=== PATIENT | female | born 1970 | race Caucasian/White ===

== ENCOUNTER 2019-04-24 05:02 | Inpatient (IN) ==
[2019-04-24] MEDS ORDERED: DEXTROSE 50% 25 GM/50 ML VIAL IV PRN (07:45)
[2019-04-24] MEDS ORDERED: diphenhydrAMINE CAP 25 MG CAPSULE PO PRN (07:45)
[2019-04-24] MEDS ORDERED: ONDANSETRON 4 MG/2 ML VIAL IV PRN (07:45)
[2019-04-24] MEDS ORDERED: GLUCAGON 1 MG VIAL IM PRN (07:45)
[2019-04-24 07:50] LABS: Pt O2 Delivery Device Venturi Mask
[2019-04-24 07:52] LABS: ABG Base Excess -8.5 MMOL/L (-2.5-2.5); ABG HCO3 20.2 MMOL/L (20-26); ABG Oxygen Saturation 84.8 % (95-100); ABG PCO2 57.3 MM HG (35-48); ABG TCO2 21.9 MMOL/L (23-27)
[2019-04-24 07:54] LABS: ABG PH 7.164 (7.35-7.45)
[2019-04-24] MEDS ORDERED: ALBUTEROL/IPRATROPIUM 3 ML NEB RESP TX PRN (07:54)
[2019-04-24] MEDS ORDERED: LEVOFLOXACIN 750 MG TABLET PO SCH (08:00)
[2019-04-24] MEDS: SODIUM CHLORIDE 0.9% 1,000 ML IV SCH ×2 (08:52→22:00)
[2019-04-24] MEDS: methylPREDNISolone SOD SUC 40 MG/1 ML VIAL IV SCH ×2 (08:53→15:36)
[2019-04-24] MEDS ORDERED: PANTOPRAZOLE 40 MG TABLET PO SCH (09:00)
[2019-04-24] MEDS ORDERED: FUROSEMIDE 100 MG/10 ML VIAL IV ONE (09:30)
[2019-04-24] MEDS ORDERED: PROPOFOL 1,000 MG/100 ML BOTTLE IV ONE ×2 (09:36→11:16)
[2019-04-24] MEDS: PROPOFOL 1,000 MG/100 ML BOTTLE IV SCH ×4 (09:41→18:34)
[2019-04-24] MEDS ORDERED: SUCCINYLCHOLINE 200 MG/10 ML VIAL ONE (09:48)
[2019-04-24] MEDS ORDERED: ETOMIDATE 40 MG/20 ML VIAL IV ONE (09:48)
[2019-04-24] MEDS ORDERED: fentaNYL INJ 1,250 MCG in SODIUM CHLORIDE 0.9% 225 ML IV PRN (10:33)
[2019-04-24 11:01] LABS: Pt O2 Delivery Device Ventilator
[2019-04-24 11:02] LABS: ABG Base Excess -10.9 MMOL/L (-2.5-2.5); ABG HCO3 15.7 MMOL/L (20-26); ABG Oxygen Saturation 91.3 % (95-100); ABG PO2 80.3 MM HG (80-95); ABG TCO2 19.8 MMOL/L (23-27)
[2019-04-24 11:03] LABS: ABG PH 7.062 (7.35-7.45)
[2019-04-24 11:04] LABS: ABG PCO2 71.5 MM HG (35-48)
[2019-04-24] MEDS: INSULIN LISPRO 100 UNIT/ML SUBCUT SCH ×2 (11:56→18:28)
[2019-04-24] MEDS: ALBUTEROL/IPRATROPIUM 3 ML NEB RESP TX SCH ×2 (12:57→19:45)
[2019-04-24 13:42] LABS: % Iron Saturation 14.3 % (18-50); Free T4 (Free Thyroxine) 1.43 NG/DL (0.76-1.46); Uric Acid 7.8 MG/DL (2.6-6.0)
[2019-04-24 14:02] LABS: Parathyroid Hormone Intact 743.9 PG/ML (18.4-80.1)
[2019-04-24] MEDS: MEROPENEM 500 MG in SODIUM CHLORIDE 0.9% 100 ML IV SCH ×2 (14:08→21:48)
[2019-04-24 15:16] LABS: Troponin I 0.251 NG/ML (0.00-0.045)
[2019-04-24 16:07] LABS: Apearance,Urine Clear (Clear); Bacteria,Urine Occasional /HPF (Few); Bilirubin,Urine Negative (Negative); Blood, Urine Trace mg/dL (Negative); Glucose,Urine (UA) Negative (Negative); Hyaline Casts,Urine 1 /LPF (0-3); Ketones,Urine Negative (Negative); Mucus,Urine Occasional /LPF (Occasional); Nitrite,Urine Negative (Negative); Protein,Urine 100 MG/DL; RBC,Urine 31 /HPF (0-4); Squamous Epithelial Cell,Urine Occasional /HPF (0-10); Urine Color Yellow (Yellow); Urine Specific Gravity 1.025 (1.001-1.035)
[2019-04-24 16:11] LABS: Urine Urobilinogen 0.2 EU/DL (0.2-1.0)
[2019-04-24] MEDS: fentaNYL INJ 2,500 MCG in SODIUM CHLORIDE 0.9% 500 ML IV PRN (17:19)
[2019-04-24 17:21] LABS: Troponin I 0.326 NG/ML (0.00-0.045)
[2019-04-24 20:43] LABS: Troponin I 0.346 NG/ML (0.00-0.045)
[2019-04-25] MEDS: methylPREDNISolone SOD SUC 40 MG/1 ML VIAL IV SCH ×3 (00:36→12:12)
[2019-04-25] MEDS: INSULIN LISPRO 100 UNIT/ML SUBCUT SCH ×4 (00:36→17:38)
[2019-04-25] MEDS: ALBUTEROL/IPRATROPIUM 3 ML NEB RESP TX SCH ×4 (00:47→19:39)
[2019-04-25] MEDS: PROPOFOL 1,000 MG/100 ML BOTTLE IV SCH ×5 (01:01→20:28)
[2019-04-25 04:23] LABS: Hematocrit 25.6 VOL% (35.7-47.0); Hemoglobin 7.6 GM/DL (12.0-16.0); Immature Granulocytes % 0.8 %; Immature Granulocytes Absolute 0.06 #; Lymphocytes # 0.9 10*3/uL (1.4-4.0); Lymphocytes % 12.7 % (21.3-54.2); Mean Corpuscular HGB Conc 29.7 GM/DL (32-36); Mean Corpuscular Volume 97.7 FL (87-102); Mean Platelet Volume 10.5 FL (9.6-12.0); Monocytes % 3.3 % (1.7-12.7); NRBC # 0.05 10*3/uL; Neutrophils % 83.2 % (38.7-73.9); Platelet Count 189 T/CUMM (130-400); Red Blood Count 2.62 MC/CUMM (3.8-5.5); Red Cell Distribution Width 14.8 % (9.3-17.3); White Blood Count 7.3 T/CUMM (4-12)
[2019-04-25 04:28] LABS: ABG Base Excess -8.4 MMOL/L (-2.5-2.5); ABG HCO3 17.6 MMOL/L (20-26); ABG Oxygen Saturation 94.6 % (95-100); ABG PCO2 37.7 MM HG (35-48); ABG PH 7.281 (7.35-7.45); ABG PO2 76.9 MM HG (80-95); ABG TCO2 16.3 MMOL/L (23-27); Allen Test Positive; Pt O2 Delivery Device Ventilator
[2019-04-25 04:31] LABS: Calcium 7.7 MG/DL (8.5-10.1); Osmolality,Calculated 304.5 MOS/KG (273-304)
[2019-04-25 04:36] LABS: Troponin I 0.388 NG/ML (0.00-0.045)
[2019-04-25 04:37] LABS: Risk Ratio 3.78; Thyroid Stimulating Hormone 0.907 uIU/ml (0.358-3.74); VLDL CHOLESTEROL 80.2 MG/DL
[2019-04-25] MEDS ORDERED: SODIUM POLYSTYRENE SULFATE 15 GM/60 ML BOTTLE PER TUBE ONE (04:43)
[2019-04-25] MEDS: fentaNYL INJ 2,500 MCG in SODIUM CHLORIDE 0.9% 500 ML IV PRN (05:35)
[2019-04-25] MEDS: MEROPENEM 500 MG in SODIUM CHLORIDE 0.9% 100 ML IV SCH ×2 (05:51→17:38)
[2019-04-25] MEDS ORDERED: ENOXAPARIN 30 MG/0.3 ML SYRINGE SUBCUT SCH (08:00)
[2019-04-25] MEDS ORDERED: GLUCAGON 1 MG VIAL IM PRN (08:29)
[2019-04-25] MEDS ORDERED: DEXTROSE 50% 25 GM/50 ML VIAL IV PRN (08:29)
[2019-04-25] MEDS: ENOXAPARIN 100 MG/ML SYRINGE SUBCUT SCH (08:51)
[2019-04-25] MEDS: LANSOPRAZOLE ODT 30 MG TABLET PER TUBE SCH (08:52)
[2019-04-25] MEDS: SODIUM BICARB INJ 100 MEQ in STERILE WATER INJ 1,000 ML IV SCH ×2 (09:21→20:28)
[2019-04-25 12:51] LABS: Calcium 7.8 MG/DL (8.5-10.1); Osmolality,Calculated 307.7 MOS/KG (273-304)
[2019-04-25] MEDS: fentaNYL INJ 2,500 MCG in SODIUM CHLORIDE 0.9% 450 ML IV PRN ×2 (13:17→21:49)
[2019-04-26] MEDS: INSULIN LISPRO 100 UNIT/ML SUBCUT SCH ×4 (00:43→18:27)
[2019-04-26] MEDS: methylPREDNISolone SOD SUC 40 MG/1 ML VIAL IV SCH ×2 (00:45→11:43)
[2019-04-26] MEDS: ALBUTEROL/IPRATROPIUM 3 ML NEB RESP TX SCH ×4 (01:12→19:05)
[2019-04-26] MEDS: PROPOFOL 1,000 MG/100 ML BOTTLE IV SCH ×5 (01:47→19:39)
[2019-04-26 04:37] LABS: Basophils % 0.1 % (0.0-0.8); Hemoglobin 8.4 GM/DL (12.0-16.0); Immature Granulocytes % 0.8 %; Immature Granulocytes Absolute 0.07 #; Lymphocytes # 1.2 10*3/uL (1.4-4.0); Lymphocytes % 14.9 % (21.3-54.2); Mean Platelet Volume 10.7 FL (9.6-12.0); Monocytes % 3.9 % (1.7-12.7); NRBC # 0.11 10*3/uL; Neutrophils % 80.3 % (38.7-73.9); Platelet Count 194 T/CUMM (130-400); Red Blood Count 2.98 MC/CUMM (3.8-5.5); Red Cell Distribution Width 14.6 % (9.3-17.3); White Blood Count 8.2 T/CUMM (4-12)
[2019-04-26 04:45] LABS: Calcium 7.6 MG/DL (8.5-10.1); Osmolality,Calculated 305.7 MOS/KG (273-304)
[2019-04-26 04:48] LABS: ABG Base Excess -5.6 MMOL/L (-2.5-2.5); ABG HCO3 20.1 MMOL/L (20-26); ABG Oxygen Saturation 94.1 % (95-100); ABG PCO2 40.2 MM HG (35-48); ABG PH 7.317 (7.35-7.45); ABG PO2 80.2 MM HG (80-95); ABG TCO2 21.3 MMOL/L (23-27); Allen Test Positive; Pt O2 Delivery Device Ventilator
[2019-04-26] MEDS: MEROPENEM 500 MG in SODIUM CHLORIDE 0.9% 100 ML IV SCH ×2 (05:35→17:24)
[2019-04-26] MEDS: fentaNYL INJ 2,500 MCG in SODIUM CHLORIDE 0.9% 450 ML IV PRN ×3 (06:03→23:15)
[2019-04-26] MEDS: SODIUM BICARB INJ 100 MEQ in STERILE WATER INJ 1,000 ML IV SCH ×2 (07:00→17:46)
[2019-04-26] MEDS ORDERED: INSULIN GLARGINE 100 UNIT/ML SUBCUT SCH ×2 (09:00)
[2019-04-26] MEDS: ENOXAPARIN 100 MG/ML SYRINGE SUBCUT SCH (09:33)
[2019-04-26] MEDS: LEVOFLOXACIN 500 MG TABLET PER TUBE SCH (09:34)
[2019-04-26] MEDS: LANSOPRAZOLE ODT 30 MG TABLET PER TUBE SCH (09:35)
[2019-04-26] MEDS: METOCLOPRAMIDE 10 MG/10 ML UDCUP PER TUBE SCH ×2 (11:37→19:39)
[2019-04-27] MEDS: ALBUTEROL/IPRATROPIUM 3 ML NEB RESP TX SCH ×4 (00:26→19:03)
[2019-04-27] MEDS: INSULIN LISPRO 100 UNIT/ML SUBCUT SCH ×4 (00:42→19:15)
[2019-04-27] MEDS: methylPREDNISolone SOD SUC 40 MG/1 ML VIAL IV SCH ×2 (00:42→13:53)
[2019-04-27] MEDS: PROPOFOL 1,000 MG/100 ML BOTTLE IV SCH ×5 (00:43→22:13)
[2019-04-27] MEDS: METOCLOPRAMIDE 10 MG/10 ML UDCUP PER TUBE SCH ×3 (03:07→19:17)
[2019-04-27 04:15] LABS: Allen Test Positive; Pt O2 Delivery Device Ventilator
[2019-04-27 04:16] LABS: ABG Base Excess -1.8 MMOL/L (-2.5-2.5); ABG HCO3 22.9 MMOL/L (20-26); ABG Oxygen Saturation 95.9 % (95-100); ABG PCO2 43.7 MM HG (35-48); ABG PH 7.346 (7.35-7.45); ABG PO2 84.1 MM HG (80-95); ABG TCO2 22.1 MMOL/L (23-27)
[2019-04-27 04:28] LABS: Hematocrit 28.1 VOL% (35.7-47.0); Immature Granulocytes % 1.2 %; Immature Granulocytes Absolute 0.08 #; Lymphocytes # 0.8 10*3/uL (1.4-4.0); Lymphocytes % 12.5 % (21.3-54.2); Mean Corpuscular Volume 90.6 FL (87-102); Mean Platelet Volume 11.1 FL (9.6-12.0); NRBC # 0.04 10*3/uL; Neutrophils % 80.3 % (38.7-73.9); Platelet Count 189 T/CUMM (130-400); Red Cell Distribution Width 14.4 % (9.3-17.3); White Blood Count 6.7 T/CUMM (4-12)
[2019-04-27 04:48] LABS: Osmolality,Calculated 304.7 MOS/KG (273-304)
[2019-04-27] MEDS: SODIUM BICARB INJ 100 MEQ in STERILE WATER INJ 1,000 ML IV SCH ×3 (04:57→16:20)
[2019-04-27] MEDS: MEROPENEM 500 MG in SODIUM CHLORIDE 0.9% 100 ML IV SCH ×2 (05:36→17:30)
[2019-04-27] MEDS: fentaNYL INJ 2,500 MCG in SODIUM CHLORIDE 0.9% 450 ML IV PRN ×3 (07:06→23:02)
[2019-04-27] MEDS: LANSOPRAZOLE ODT 30 MG TABLET PER TUBE SCH (09:17)
[2019-04-27] MEDS: ENOXAPARIN 100 MG/ML SYRINGE SUBCUT SCH (09:18)
[2019-04-27] MEDS: INSULIN GLARGINE 100 UNIT/ML SUBCUT SCH (09:18)
[2019-04-28] MEDS: INSULIN LISPRO 100 UNIT/ML SUBCUT SCH ×5 (00:03→23:54)
[2019-04-28] MEDS: methylPREDNISolone SOD SUC 40 MG/1 ML VIAL IV SCH ×3 (00:03→23:54)
[2019-04-28] MEDS: ALBUTEROL/IPRATROPIUM 3 ML NEB RESP TX SCH ×4 (00:43→19:21)
[2019-04-28] MEDS: METOCLOPRAMIDE 10 MG/10 ML UDCUP PER TUBE SCH ×3 (03:16→18:22)
[2019-04-28 03:39] LABS: ABG Base Excess 2.1 MMOL/L (-2.5-2.5); ABG HCO3 25.9 MMOL/L (20-26); ABG Oxygen Saturation 93.8 % (95-100); ABG PCO2 36.8 MM HG (35-48); ABG PH 7.465 (7.35-7.45); Allen Test Positive; Pt O2 Delivery Device Ventilator
[2019-04-28 04:00] LABS: Hematocrit 25.9 VOL% (35.7-47.0); Hemoglobin 8.3 GM/DL (12.0-16.0); Immature Granulocytes % 0.9 %; Immature Granulocytes Absolute 0.05 #; Lymphocytes # 0.7 10*3/uL (1.4-4.0); Lymphocytes % 12.1 % (21.3-54.2); Mean Corpuscular Volume 89.6 FL (87-102); Mean Platelet Volume 11.4 FL (9.6-12.0); Monocytes % 4.9 % (1.7-12.7); NRBC # 0.03 10*3/uL; Neutrophils % 82.1 % (38.7-73.9); Platelet Count 175 T/CUMM (130-400); Red Blood Count 2.89 MC/CUMM (3.8-5.5); Red Cell Distribution Width 14.5 % (9.3-17.3); White Blood Count 5.7 T/CUMM (4-12)
[2019-04-28 04:36] LABS: Calcium 6.7 MG/DL (8.5-10.1); Osmolality,Calculated 303.8 MOS/KG (273-304)
[2019-04-28] MEDS: PROPOFOL 1,000 MG/100 ML BOTTLE IV SCH ×4 (04:52→21:59)
[2019-04-28] MEDS: MEROPENEM 500 MG in SODIUM CHLORIDE 0.9% 100 ML IV SCH ×2 (05:19→16:35)
[2019-04-28] MEDS: SODIUM BICARB INJ 100 MEQ in STERILE WATER INJ 1,000 ML IV SCH (05:20)
[2019-04-28] MEDS: fentaNYL INJ 2,500 MCG in SODIUM CHLORIDE 0.9% 450 ML IV PRN ×3 (06:49→21:44)
[2019-04-28] MEDS: INSULIN GLARGINE 100 UNIT/ML SUBCUT SCH (08:54)
[2019-04-28] MEDS: LEVOFLOXACIN 500 MG TABLET PER TUBE SCH (08:55)
[2019-04-28] MEDS: ENOXAPARIN 100 MG/ML SYRINGE SUBCUT SCH (08:55)
[2019-04-28] MEDS: SODIUM BICARBONATE 650 MG TABLET PER TUBE SCH ×3 (08:55→21:41)
[2019-04-28] MEDS: LANSOPRAZOLE ODT 30 MG TABLET PER TUBE SCH (08:55)
[2019-04-28 17:35] LABS: ABG Base Excess -0.8 MMOL/L (-2.5-2.5); ABG HCO3 23.5 MMOL/L (20-26); ABG Oxygen Saturation 85.2 % (95-100); ABG PCO2 61.8 MM HG (35-48); ABG PH 7.255 (7.35-7.45); ABG PO2 61.7 MM HG (80-95); ABG TCO2 25.6 MMOL/L (23-27); Pt O2 Delivery Device Ventilator
[2019-04-29] MEDS: ALBUTEROL/IPRATROPIUM 3 ML NEB RESP TX SCH ×4 (00:52→19:32)
[2019-04-29] MEDS: PROPOFOL 1,000 MG/100 ML BOTTLE IV SCH ×5 (03:21→21:56)
[2019-04-29] MEDS: METOCLOPRAMIDE 10 MG/10 ML UDCUP PER TUBE SCH ×3 (03:22→20:13)
[2019-04-29 03:26] LABS: Allen Test Positive; Pt O2 Delivery Device Ventilator
[2019-04-29 03:28] LABS: ABG Base Excess 0.8 MMOL/L (-2.5-2.5); ABG HCO3 26.7 MMOL/L (20-26); ABG PCO2 48.4 MM HG (35-48); ABG PH 7.359 (7.35-7.45); ABG TCO2 28.2 MMOL/L (23-27)
[2019-04-29] MEDS: fentaNYL INJ 2,500 MCG in SODIUM CHLORIDE 0.9% 450 ML IV PRN ×3 (04:05→21:54)
[2019-04-29 04:32] LABS: Hematocrit 28.2 VOL% (35.7-47.0); Hemoglobin 8.7 GM/DL (12.0-16.0); Immature Granulocytes Absolute 0.05 #; Lymphocytes # 0.6 10*3/uL (1.4-4.0); Lymphocytes % 11.4 % (21.3-54.2); Mean Corpuscular HGB Conc 30.9 GM/DL (32-36); Mean Corpuscular Volume 93.4 FL (87-102); Mean Platelet Volume 11.1 FL (9.6-12.0); Monocytes % 4.4 % (1.7-12.7); NRBC # 0.02 10*3/uL; Neutrophils % 83.2 % (38.7-73.9); Platelet Count 185 T/CUMM (130-400); Red Blood Count 3.02 MC/CUMM (3.8-5.5); Red Cell Distribution Width 14.6 % (9.3-17.3)
[2019-04-29 04:54] LABS: Calcium 7.3 MG/DL (8.5-10.1); Osmolality,Calculated 308.5 MOS/KG (273-304)
[2019-04-29] MEDS: INSULIN LISPRO 100 UNIT/ML SUBCUT SCH ×3 (05:39→18:06)
[2019-04-29] MEDS: MEROPENEM 500 MG in SODIUM CHLORIDE 0.9% 100 ML IV SCH ×2 (06:03→16:56)
[2019-04-29] MEDS: ENOXAPARIN 100 MG/ML SYRINGE SUBCUT SCH (09:48)
[2019-04-29] MEDS: LANSOPRAZOLE ODT 30 MG TABLET PER TUBE SCH (09:48)
[2019-04-29] MEDS: SODIUM BICARBONATE 650 MG TABLET PER TUBE SCH ×3 (09:48→21:55)
[2019-04-29] MEDS: INSULIN GLARGINE 100 UNIT/ML SUBCUT SCH (09:48)
[2019-04-29] MEDS ORDERED: LACTULOSE 20 GM/30 ML UDCUP PER TUBE PRN (10:19)
[2019-04-29] MEDS: methylPREDNISolone SOD SUC 40 MG/1 ML VIAL IV SCH (14:27)
[2019-04-30] MEDS ORDERED: hydrALAZINE 20 MG/1 ML VIAL IV PRN (00:04)
[2019-04-30] MEDS: ALBUTEROL/IPRATROPIUM 3 ML NEB RESP TX SCH ×4 (00:46→19:40)
[2019-04-30] MEDS: INSULIN LISPRO 100 UNIT/ML SUBCUT SCH ×4 (01:32→17:43)
[2019-04-30] MEDS: methylPREDNISolone SOD SUC 40 MG/1 ML VIAL IV SCH ×2 (01:32→11:58)
[2019-04-30] MEDS: PROPOFOL 1,000 MG/100 ML BOTTLE IV SCH ×5 (02:45→21:00)
[2019-04-30] MEDS: fentaNYL INJ 2,500 MCG in SODIUM CHLORIDE 0.9% 450 ML IV PRN ×2 (03:29→09:41)
[2019-04-30] MEDS: METOCLOPRAMIDE 10 MG/10 ML UDCUP PER TUBE SCH ×3 (03:29→18:24)
[2019-04-30 03:32] LABS: ABG Base Excess 4.2 MMOL/L (-2.5-2.5); ABG HCO3 28.1 MMOL/L (20-26); ABG Oxygen Saturation 95.5 % (95-100); ABG PCO2 40.2 MM HG (35-48); ABG PH 7.456 (7.35-7.45); ABG PO2 73.7 MM HG (80-95); ABG TCO2 26.1 MMOL/L (23-27)
[2019-04-30] MEDS: MEROPENEM 500 MG in SODIUM CHLORIDE 0.9% 100 ML IV SCH (05:00)
[2019-04-30 05:05] LABS: Eosinophils % 0.2 % (0.00-10.9); Hematocrit 28.6 VOL% (35.7-47.0); Hemoglobin 8.9 GM/DL (12.0-16.0); Immature Granulocytes % 0.8 %; Immature Granulocytes Absolute 0.05 #; Lymphocytes # 0.9 10*3/uL (1.4-4.0); Lymphocytes % 15.7 % (21.3-54.2); Mean Corpuscular HGB Conc 31.1 GM/DL (32-36); Mean Corpuscular Volume 93.5 FL (87-102); Mean Platelet Volume 11.3 FL (9.6-12.0); Monocytes % 6.8 % (1.7-12.7); Neutrophils % 76.5 % (38.7-73.9); Platelet Count 185 T/CUMM (130-400); Red Blood Count 3.06 MC/CUMM (3.8-5.5); Red Cell Distribution Width 14.6 % (9.3-17.3)
[2019-04-30 05:16] LABS: Calcium 7.8 MG/DL (8.5-10.1)
[2019-04-30] MEDS ORDERED: FUROSEMIDE 40 MG/4 ML VIAL IV ONE (08:36)
[2019-04-30] MEDS: SODIUM BICARBONATE 650 MG TABLET PER TUBE SCH ×2 (09:38→10:11)
[2019-04-30] MEDS: LANSOPRAZOLE ODT 30 MG TABLET PER TUBE SCH (09:38)
[2019-04-30] MEDS: LEVOFLOXACIN 500 MG TABLET PER TUBE SCH ×2 (09:38→10:11)
[2019-04-30] MEDS: INSULIN GLARGINE 100 UNIT/ML SUBCUT SCH (09:39)
[2019-04-30] MEDS: ENOXAPARIN 100 MG/ML SYRINGE SUBCUT SCH (10:11)
[2019-04-30] MEDS: PANTOPRAZOLE 40 MG VIAL IV SCH (10:25)
[2019-04-30] MEDS: MAGNESIUM HYDROXIDE SUSP 30 ML UDCUP PER TUBE PRN ×2 (10:25→20:35)
[2019-04-30] MEDS ORDERED: ALUMINUM/MAGNES/SIMETH MAX STR 30 ML UDCUP PO SCH (15:30)
[2019-05-01] MEDS: INSULIN LISPRO 100 UNIT/ML SUBCUT SCH ×4 (00:06→18:14)
[2019-05-01] MEDS: ALBUTEROL/IPRATROPIUM 3 ML NEB RESP TX SCH ×4 (00:34→19:17)
[2019-05-01] MEDS: PROPOFOL 1,000 MG/100 ML BOTTLE IV SCH ×8 (00:42→21:59)
[2019-05-01] MEDS: MAGNESIUM HYDROXIDE SUSP 30 ML UDCUP PER TUBE PRN ×2 (04:02→08:04)
[2019-05-01] MEDS: METOCLOPRAMIDE 10 MG/10 ML UDCUP PER TUBE SCH ×3 (04:02→19:20)
[2019-05-01 04:17] LABS: Allen Test Positive; Pt O2 Delivery Device Ventilator
[2019-05-01 04:18] LABS: ABG Base Excess 5.9 MMOL/L (-2.5-2.5); ABG HCO3 29.8 MMOL/L (20-26); ABG Oxygen Saturation 97.7 % (95-100); ABG PCO2 44.8 MM HG (35-48); ABG PH 7.444 (7.35-7.45); ABG TCO2 28.1 MMOL/L (23-27)
[2019-05-01 06:29] LABS: Albumin 2.3 G/DL (3.4-5.0); Calcium 8.5 MG/DL (8.5-10.1); Osmolality,Calculated 312.6 MOS/KG (273-304)
[2019-05-01 07:27] LABS: Basophils % 0.2 % (0.0-0.8); Eosinophils # 0.1 10*3/uL (0.0-0.87); Eosinophils % 0.9 % (0.00-10.9); Hematocrit 30.6 VOL% (35.7-47.0); Hemoglobin 9.5 GM/DL (12.0-16.0); Immature Granulocytes % 0.6 %; Immature Granulocytes Absolute 0.06 #; Lymphocytes # 3.3 10*3/uL (1.4-4.0); Lymphocytes % 32.1 % (21.3-54.2); Mean Corpuscular Volume 93.6 FL (87-102); Mean Platelet Volume 10.7 FL (9.6-12.0); Neutrophils % 61.2 % (38.7-73.9); Platelet Count 190 T/CUMM (130-400); Red Blood Count 3.27 MC/CUMM (3.8-5.5); Red Cell Distribution Width 14.7 % (9.3-17.3); White Blood Count 10.3 T/CUMM (4-12)
[2019-05-01] MEDS: PANTOPRAZOLE 40 MG VIAL IV SCH (08:04)
[2019-05-01] MEDS: predniSONE 20 MG TABLET PO SCH (08:04)
[2019-05-01] MEDS: INSULIN GLARGINE 100 UNIT/ML SUBCUT SCH (08:06)
[2019-05-01] MEDS: BISACODYL 10 MG SUPP RECTAL SCH (09:00)
[2019-05-01] MEDS ORDERED: DEXTROSE 10% 250 ML BAG IV PRN (09:00)
[2019-05-01] MEDS ORDERED: ENOXAPARIN 40 MG/0.4 ML SYRINGE SUBCUT SCH (09:00)
[2019-05-01] MEDS: ALBUMIN 25% 25 GM in PREMIX 1 EACH IV SCH (11:54)
[2019-05-01] MEDS: SODIUM CHLORIDE 0.45% 1,000 ML IV SCH (11:54)
[2019-05-02] MEDS: PROPOFOL 1,000 MG/100 ML BOTTLE IV SCH ×9 (00:01→21:46)
[2019-05-02] MEDS: ALBUTEROL/IPRATROPIUM 3 ML NEB RESP TX SCH ×4 (00:45→20:03)
[2019-05-02] MEDS: SODIUM CHLORIDE 0.45% 1,000 ML IV SCH ×2 (01:35→14:46)
[2019-05-02] MEDS: INSULIN LISPRO 100 UNIT/ML SUBCUT SCH ×4 (01:40→17:52)
[2019-05-02] MEDS: METOCLOPRAMIDE 10 MG/10 ML UDCUP PER TUBE SCH ×3 (02:30→18:01)
[2019-05-02 04:24] LABS: Pt O2 Delivery Device Ventilator
[2019-05-02 04:25] LABS: ABG Base Excess 3.9 MMOL/L (-2.5-2.5); ABG Oxygen Saturation 90.5 % (95-100); ABG PCO2 46.7 MM HG (35-48); ABG PH 7.411 (7.35-7.45); ABG PO2 62.1 MM HG (80-95); ABG TCO2 30.4 MMOL/L (23-27)
[2019-05-02 04:49] LABS: Eosinophils # 0.1 10*3/uL (0.0-0.87); Eosinophils % 1.7 % (0.00-10.9); Hematocrit 29.1 VOL% (35.7-47.0); Hemoglobin 8.8 GM/DL (12.0-16.0); Immature Granulocytes % 0.7 %; Immature Granulocytes Absolute 0.05 #; Lymphocytes # 2.3 10*3/uL (1.4-4.0); Lymphocytes % 33.4 % (21.3-54.2); Mean Corpuscular HGB Conc 30.2 GM/DL (32-36); Mean Corpuscular Volume 95.4 FL (87-102); Monocytes % 6.1 % (1.7-12.7); Neutrophils % 58.1 % (38.7-73.9); Platelet Count 178 T/CUMM (130-400); Red Blood Count 3.05 MC/CUMM (3.8-5.5); Red Cell Distribution Width 14.6 % (9.3-17.3); White Blood Count 6.9 T/CUMM (4-12)
[2019-05-02 05:05] LABS: Albumin 3.1 G/DL (3.4-5.0); Calcium 8.5 MG/DL (8.5-10.1); Osmolality,Calculated 310.4 MOS/KG (273-304)
[2019-05-02] MEDS ORDERED: FUROSEMIDE 40 MG/4 ML VIAL IV ONE (07:19)
[2019-05-02] MEDS ORDERED: predniSONE 10 MG TABLET ONE (08:14)
[2019-05-02] MEDS: predniSONE 20 MG TABLET PO SCH (08:22)
[2019-05-02] MEDS: PANTOPRAZOLE 40 MG VIAL IV SCH (08:23)
[2019-05-02] MEDS ORDERED: ENOXAPARIN 30 MG/0.3 ML SYRINGE SUBCUT SCH (09:00)
[2019-05-02] MEDS ORDERED: LORazepam 2 MG/1 ML VIAL ONE ×2 (09:04→11:39)
[2019-05-02] MEDS: LORazepam 2 MG/1 ML VIAL IV PRN ×2 (09:07→11:39)
[2019-05-02] MEDS: MAGNESIUM HYDROXIDE SUSP 30 ML UDCUP PER TUBE SCH ×4 (09:10→21:55)
[2019-05-02] MEDS: BISACODYL 10 MG SUPP RECTAL SCH (09:10)
[2019-05-02] MEDS: ALBUMIN 25% 25 GM in PREMIX 1 EACH IV SCH ×2 (11:11)
[2019-05-02] MEDS ORDERED: SODIUM POLYSTYRENE SULFATE 15 GM/60 ML BOTTLE PO ONE (15:22)
[2019-05-02] MEDS: QUEtiapine 25 MG TABLET PO SCH ×2 (16:24→21:55)
[2019-05-03] MEDS: ALBUMIN 25% 25 GM in PREMIX 1 EACH IV SCH ×2 (00:09→12:14)
[2019-05-03] MEDS: INSULIN LISPRO 100 UNIT/ML SUBCUT SCH ×4 (00:09→17:46)
[2019-05-03] MEDS: PROPOFOL 1,000 MG/100 ML BOTTLE IV SCH ×9 (00:23→22:58)
[2019-05-03] MEDS: ALBUTEROL/IPRATROPIUM 3 ML NEB RESP TX SCH ×4 (00:40→19:26)
[2019-05-03] MEDS: MAGNESIUM HYDROXIDE SUSP 30 ML UDCUP PER TUBE SCH ×2 (02:09→05:16)
[2019-05-03] MEDS: SODIUM CHLORIDE 0.45% 1,000 ML IV SCH (03:35)
[2019-05-03 03:40] LABS: ABG Base Excess 6.9 MMOL/L (-2.5-2.5); ABG HCO3 30.6 MMOL/L (20-26); ABG Oxygen Saturation 92.6 % (95-100); ABG PCO2 43.7 MM HG (35-48); ABG PH 7.464 (7.35-7.45); ABG PO2 62.5 MM HG (80-95); ABG TCO2 28.9 MMOL/L (23-27); Allen Test Positive; Pt O2 Delivery Device Ventilator
[2019-05-03] MEDS: METOCLOPRAMIDE 10 MG/10 ML UDCUP PER TUBE SCH ×3 (03:58→18:13)
[2019-05-03 04:33] LABS: Eosinophils # 0.1 10*3/uL (0.0-0.87); Eosinophils % 1.7 % (0.00-10.9); Hematocrit 25.9 VOL% (35.7-47.0); Hemoglobin 8.2 GM/DL (12.0-16.0); Immature Granulocytes % 0.5 %; Immature Granulocytes Absolute 0.03 #; Lymphocytes # 1.7 10*3/uL (1.4-4.0); Lymphocytes % 29.2 % (21.3-54.2); Mean Corpuscular HGB Conc 31.7 GM/DL (32-36); Mean Corpuscular Volume 92.8 FL (87-102); Mean Platelet Volume 11.5 FL (9.6-12.0); Monocytes % 6.3 % (1.7-12.7); Neutrophils % 62.3 % (38.7-73.9); Platelet Count 155 T/CUMM (130-400); Red Blood Count 2.79 MC/CUMM (3.8-5.5); White Blood Count 5.7 T/CUMM (4-12)
[2019-05-03 04:54] LABS: Albumin 3.5 G/DL (3.4-5.0); Calcium 8.2 MG/DL (8.5-10.1); Osmolality,Calculated 301.1 MOS/KG (273-304)
[2019-05-03 04:55] LABS: Calcium 8.1 MG/DL (8.5-10.1); Osmolality,Calculated 299.4 MOS/KG (273-304)
[2019-05-03] MEDS ORDERED: FUROSEMIDE 40 MG/4 ML VIAL IV ONE (07:36)
[2019-05-03] MEDS: ENOXAPARIN 40 MG/0.4 ML SYRINGE SUBCUT SCH (09:33)
[2019-05-03] MEDS: predniSONE 20 MG TABLET PO SCH (09:34)
[2019-05-03] MEDS: PANTOPRAZOLE 40 MG VIAL IV SCH (09:34)
[2019-05-03] MEDS: QUEtiapine 25 MG TABLET PO SCH ×2 (09:34→20:41)
[2019-05-03] MEDS ORDERED: predniSONE 20 MG TABLET PO ONE (11:18)
[2019-05-03] MEDS ORDERED: predniSONE 20 MG TABLET PO SCH (11:30)
[2019-05-03] MEDS: FUROSEMIDE 40 MG/4 ML VIAL IV SCH (20:41)
[2019-05-03] MEDS: ACETAMINOPHEN 325 MG TABLET PO PRN (22:56)
[2019-05-04] MEDS: ALBUTEROL/IPRATROPIUM 3 ML NEB RESP TX SCH ×4 (00:24→20:16)
[2019-05-04] MEDS: ALBUMIN 25% 25 GM in PREMIX 1 EACH IV SCH ×3 (00:34→22:52)
[2019-05-04] MEDS: INSULIN LISPRO 100 UNIT/ML SUBCUT SCH ×4 (01:04→17:55)
[2019-05-04] MEDS: PROPOFOL 1,000 MG/100 ML BOTTLE IV SCH ×7 (02:05→22:20)
[2019-05-04 03:50] LABS: ABG Base Excess 7.8 MMOL/L (-2.5-2.5); ABG HCO3 31.6 MMOL/L (20-26); ABG Oxygen Saturation 96.1 % (95-100); ABG PCO2 45.3 MM HG (35-48); ABG PH 7.464 (7.35-7.45); ABG PO2 76.3 MM HG (80-95); ABG TCO2 30.3 MMOL/L (23-27); Allen Test Positive; Pt O2 Delivery Device Ventilator
[2019-05-04 04:04] LABS: Basophils % 0.2 % (0.0-0.8); Eosinophils % 0.2 % (0.00-10.9); Hematocrit 25.9 VOL% (35.7-47.0); Hemoglobin 7.9 GM/DL (12.0-16.0); Immature Granulocytes % 0.7 %; Immature Granulocytes Absolute 0.04 #; Lymphocytes % 16.6 % (21.3-54.2); Mean Corpuscular HGB Conc 30.5 GM/DL (32-36); Mean Corpuscular Volume 94.5 FL (87-102); Mean Platelet Volume 11.6 FL (9.6-12.0); Monocytes % 6.1 % (1.7-12.7); Neutrophils % 76.2 % (38.7-73.9); Platelet Count 157 T/CUMM (130-400); Red Blood Count 2.74 MC/CUMM (3.8-5.5); White Blood Count 5.7 T/CUMM (4-12)
[2019-05-04 04:12] LABS: Albumin 3.9 G/DL (3.4-5.0); Calcium 8.5 MG/DL (8.5-10.1); Osmolality,Calculated 307.8 MOS/KG (273-304)
[2019-05-04] MEDS: METOCLOPRAMIDE 10 MG/10 ML UDCUP PER TUBE SCH ×3 (04:14→18:01)
[2019-05-04] MEDS ORDERED: predniSONE 20 MG TABLET PO SCH (09:00)
[2019-05-04] MEDS: FUROSEMIDE 40 MG/4 ML VIAL IV SCH ×2 (09:28→16:06)
[2019-05-04] MEDS: PANTOPRAZOLE 40 MG VIAL IV SCH (09:29)
[2019-05-04] MEDS: ENOXAPARIN 40 MG/0.4 ML SYRINGE SUBCUT SCH (09:29)
[2019-05-04] MEDS: QUEtiapine 25 MG TABLET PO SCH ×2 (09:29→20:27)
[2019-05-04] MEDS: methylPREDNISolone SOD SUC 40 MG/1 ML VIAL IV SCH ×3 (09:42→21:35)
[2019-05-04] MEDS: POLYETHYLENE GLYCOL POWDER 17 GM PACK PER TUBE SCH (09:42)
[2019-05-04] MEDS ORDERED: VANCOMYCIN INJ 2,000 MG in SODIUM CHLORIDE 0.9% 500 ML IV SCH (10:00)
[2019-05-04] MEDS: LORazepam 2 MG/1 ML VIAL IV PRN (11:03)
[2019-05-04] MEDS: PIPERACILLIN/TAZOBACTAM 3,375 MG in SODIUM CHLORIDE 0.9% 100 ML IV SCH ×2 (12:33→20:26)
[2019-05-05] MEDS: INSULIN LISPRO 100 UNIT/ML SUBCUT SCH ×4 (00:20→18:09)
[2019-05-05] MEDS: ALBUTEROL/IPRATROPIUM 3 ML NEB RESP TX SCH ×4 (00:29→19:45)
[2019-05-05] MEDS: PROPOFOL 1,000 MG/100 ML BOTTLE IV SCH ×7 (01:30→20:18)
[2019-05-05] MEDS: PIPERACILLIN/TAZOBACTAM 3,375 MG in SODIUM CHLORIDE 0.9% 100 ML IV SCH ×3 (03:41→20:38)
[2019-05-05] MEDS: METOCLOPRAMIDE 10 MG/10 ML UDCUP PER TUBE SCH ×3 (03:41→18:08)
[2019-05-05] MEDS: methylPREDNISolone SOD SUC 40 MG/1 ML VIAL IV SCH ×4 (03:41→21:37)
[2019-05-05 04:16] LABS: ABG HCO3 30.7 MMOL/L (20-26); ABG Oxygen Saturation 93.5 % (95-100); ABG PCO2 44.5 MM HG (35-48); ABG PH 7.459 (7.35-7.45); ABG PO2 66.3 MM HG (80-95); ABG TCO2 29.4 MMOL/L (23-27); Allen Test Positive; Pt O2 Delivery Device Ventilator
[2019-05-05 04:25] LABS: Basophils % 0.2 % (0.0-0.8); Hematocrit 25.4 VOL% (35.7-47.0); Hemoglobin 7.7 GM/DL (12.0-16.0); Immature Granulocytes % 1.4 %; Immature Granulocytes Absolute 0.07 #; Lymphocytes # 0.6 10*3/uL (1.4-4.0); Lymphocytes % 11.7 % (21.3-54.2); Mean Corpuscular HGB Conc 30.3 GM/DL (32-36); Mean Corpuscular Volume 94.1 FL (87-102); Mean Platelet Volume 11.8 FL (9.6-12.0); Monocytes % 3.5 % (1.7-12.7); Neutrophils % 83.2 % (38.7-73.9); Platelet Count 160 T/CUMM (130-400); White Blood Count 4.9 T/CUMM (4-12)
[2019-05-05 04:48] LABS: Osmolality,Calculated 306.7 MOS/KG (273-304)
[2019-05-05] MEDS: FUROSEMIDE 40 MG/4 ML VIAL IV SCH ×3 (09:41→21:37)
[2019-05-05] MEDS: QUEtiapine 25 MG TABLET PO SCH ×2 (09:43→20:38)
[2019-05-05] MEDS: POLYETHYLENE GLYCOL POWDER 17 GM PACK PER TUBE SCH (09:43)
[2019-05-05] MEDS: ENOXAPARIN 40 MG/0.4 ML SYRINGE SUBCUT SCH (09:43)
[2019-05-05] MEDS: PANTOPRAZOLE 40 MG VIAL IV SCH (09:57)
[2019-05-05] MEDS: ALBUMIN 25% 25 GM in PREMIX 1 EACH IV SCH (11:18)
[2019-05-05] MEDS: MAGNESIUM HYDROXIDE SUSP 30 ML UDCUP PO SCH ×2 (16:11→20:38)
[2019-05-05 17:45] LABS: Barbiturates Screen,Urine Negative (Negative); Benzodiazepines Screen,Urine Negative (Negative); Cannabinoid Screen,Urine Negative (Negative); Opiate Screen,Urine Negative (Negative); Phencyclidine Screen,Urine Negative (Negative)
[2019-05-05] MEDS: INSULIN GLARGINE 100 UNIT/ML SUBCUT SCH (18:08)
[2019-05-05] MEDS: amLODIPine 5 MG TABLET PO SCH (18:09)
[2019-05-06] MEDS: INSULIN LISPRO 100 UNIT/ML SUBCUT SCH ×5 (00:14→17:50)
[2019-05-06] MEDS: PROPOFOL 1,000 MG/100 ML BOTTLE IV SCH ×4 (00:30→13:10)
[2019-05-06] MEDS: ALBUTEROL/IPRATROPIUM 3 ML NEB RESP TX SCH ×4 (01:31→19:29)
[2019-05-06] MEDS: methylPREDNISolone SOD SUC 40 MG/1 ML VIAL IV SCH ×4 (02:56→21:16)
[2019-05-06] MEDS: METOCLOPRAMIDE 10 MG/10 ML UDCUP PER TUBE SCH ×2 (02:56→12:26)
[2019-05-06] MEDS: FUROSEMIDE 40 MG/4 ML VIAL IV SCH ×4 (03:01→21:17)
[2019-05-06] MEDS: PIPERACILLIN/TAZOBACTAM 3,375 MG in SODIUM CHLORIDE 0.9% 100 ML IV SCH ×3 (03:02→21:17)
[2019-05-06 04:13] LABS: Basophils % 0.2 % (0.0-0.8); Hematocrit 30.7 VOL% (35.7-47.0); Hemoglobin 9.1 GM/DL (12.0-16.0); Immature Granulocytes % 1.1 %; Immature Granulocytes Absolute 0.07 #; Lymphocytes % 16.2 % (21.3-54.2); Mean Corpuscular HGB Conc 29.6 GM/DL (32-36); Mean Corpuscular Volume 94.8 FL (87-102); Mean Platelet Volume 11.6 FL (9.6-12.0); Monocytes % 4.3 % (1.7-12.7); Neutrophils % 78.2 % (38.7-73.9); Platelet Count 198 T/CUMM (130-400); Red Blood Count 3.24 MC/CUMM (3.8-5.5); Red Cell Distribution Width 13.8 % (9.3-17.3); White Blood Count 6.3 T/CUMM (4-12)
[2019-05-06 04:30] LABS: Calcium 9.4 MG/DL (8.5-10.1); Osmolality,Calculated 305.7 MOS/KG (273-304)
[2019-05-06 04:34] LABS: ABG Base Excess 9.1 MMOL/L (-2.5-2.5); ABG HCO3 33.7 MMOL/L (20-26); ABG Oxygen Saturation 92.7 % (95-100); ABG PCO2 47.2 MM HG (35-48); ABG PH 7.472 (7.35-7.45); ABG PO2 66.4 MM HG (80-95); ABG TCO2 35.2 MMOL/L (23-27); Allen Test Positive; Pt O2 Delivery Device Ventilator
[2019-05-06] MEDS: LORazepam 2 MG/1 ML VIAL IV PRN ×2 (06:07→21:17)
[2019-05-06] MEDS: MAGNESIUM HYDROXIDE SUSP 30 ML UDCUP PO SCH ×3 (09:42→21:17)
[2019-05-06] MEDS: INSULIN GLARGINE 100 UNIT/ML SUBCUT SCH (09:43)
[2019-05-06] MEDS: amLODIPine 5 MG TABLET PO SCH (09:43)
[2019-05-06] MEDS: QUEtiapine 25 MG TABLET PO SCH ×2 (09:43→21:16)
[2019-05-06] MEDS: PANTOPRAZOLE 40 MG VIAL IV SCH (09:43)
[2019-05-06] MEDS: ENOXAPARIN 30 MG/0.3 ML SYRINGE SUBCUT SCH (09:44)
[2019-05-06] MEDS ORDERED: hydrALAZINE 20 MG/1 ML VIAL IV PRN (14:01)
[2019-05-06] MEDS: METOCLOPRAMIDE 10 MG/2 ML VIAL IV SCH (17:50)
[2019-05-06] MEDS: carvediloL 3.125 MG TABLET PO SCH (17:50)
[2019-05-07] MEDS: INSULIN LISPRO 100 UNIT/ML SUBCUT SCH ×8 (00:05→19:08)
[2019-05-07] MEDS: METOCLOPRAMIDE 10 MG/2 ML VIAL IV SCH ×4 (00:14→19:08)
[2019-05-07] MEDS: ALBUTEROL/IPRATROPIUM 3 ML NEB RESP TX SCH ×4 (00:37→20:12)
[2019-05-07] MEDS: PROPOFOL 1,000 MG/100 ML BOTTLE IV SCH ×4 (01:30→23:45)
[2019-05-07] MEDS: methylPREDNISolone SOD SUC 40 MG/1 ML VIAL IV SCH ×4 (03:41→22:15)
[2019-05-07] MEDS: FUROSEMIDE 40 MG/4 ML VIAL IV SCH ×4 (03:42→22:10)
[2019-05-07 05:02] LABS: ABG Base Excess 9.7 MMOL/L (-2.5-2.5); ABG Oxygen Saturation 91.6 % (95-100); ABG PH 7.496 (7.35-7.45); ABG TCO2 35.4 MMOL/L (23-27); Pt O2 Delivery Device Ventilator
[2019-05-07] MEDS: PIPERACILLIN/TAZOBACTAM 3,375 MG in SODIUM CHLORIDE 0.9% 100 ML IV SCH (05:20)
[2019-05-07 06:35] LABS: Basophils % 0.1 % (0.0-0.8); Hematocrit 30.8 VOL% (35.7-47.0); Hemoglobin 9.3 GM/DL (12.0-16.0); Immature Granulocytes % 0.9 %; Immature Granulocytes Absolute 0.06 #; Lymphocytes # 0.8 10*3/uL (1.4-4.0); Lymphocytes % 11.3 % (21.3-54.2); Mean Corpuscular HGB Conc 30.2 GM/DL (32-36); Mean Corpuscular Volume 94.5 FL (87-102); Mean Platelet Volume 11.5 FL (9.6-12.0); Neutrophils % 83.7 % (38.7-73.9); Platelet Count 193 T/CUMM (130-400); Red Blood Count 3.26 MC/CUMM (3.8-5.5); Red Cell Distribution Width 13.7 % (9.3-17.3); White Blood Count 6.8 T/CUMM (4-12)
[2019-05-07 06:47] LABS: Calcium 9.8 MG/DL (8.5-10.1); Osmolality,Calculated 316.4 MOS/KG (273-304)
[2019-05-07] MEDS ORDERED: FUROSEMIDE 20 MG/2 ML VIAL ONE (08:28)
[2019-05-07] MEDS: PANTOPRAZOLE 40 MG VIAL IV SCH (08:38)
[2019-05-07] MEDS: ENOXAPARIN 30 MG/0.3 ML SYRINGE SUBCUT SCH (08:48)
[2019-05-07] MEDS ORDERED: LEVOFLOXACIN INJ 750 MG in PREMIX 1 EACH IV SCH (09:30)
[2019-05-07] MEDS: carvediloL 3.125 MG TABLET PO SCH ×2 (12:28→17:30)
[2019-05-07] MEDS: amLODIPine 10 MG TABLET PO SCH (12:29)
[2019-05-07] MEDS: QUEtiapine 25 MG TABLET PO SCH ×2 (12:29→20:16)
[2019-05-07] MEDS: INSULIN GLARGINE 100 UNIT/ML SUBCUT SCH (12:29)
[2019-05-07] MEDS: MAGNESIUM HYDROXIDE SUSP 30 ML UDCUP PO SCH ×3 (12:29→20:16)
[2019-05-08] MEDS: METOCLOPRAMIDE 10 MG/2 ML VIAL IV SCH ×5 (00:18→23:57)
[2019-05-08] MEDS: INSULIN LISPRO 100 UNIT/ML SUBCUT SCH ×10 (00:25→23:57)
[2019-05-08] MEDS: ALBUTEROL/IPRATROPIUM 3 ML NEB RESP TX SCH ×4 (00:49→19:45)
[2019-05-08] MEDS: methylPREDNISolone SOD SUC 40 MG/1 ML VIAL IV SCH ×3 (00:55→16:50)
[2019-05-08 03:28] LABS: ABG Base Excess 10.9 MMOL/L (-2.5-2.5); ABG HCO3 34.5 MMOL/L (20-26); ABG Oxygen Saturation 91.4 % (95-100); ABG PCO2 39.3 MM HG (35-48); ABG PH 7.549 (7.35-7.45); ABG PO2 58.5 MM HG (80-95); ABG TCO2 31.1 MMOL/L (23-27); Allen Test Positive; Pt O2 Delivery Device Ventilator
[2019-05-08] MEDS ORDERED: FUROSEMIDE 20 MG/2 ML VIAL ONE (03:49)
[2019-05-08] MEDS: FUROSEMIDE 40 MG/4 ML VIAL IV SCH (03:51)
[2019-05-08] MEDS: PROPOFOL 1,000 MG/100 ML BOTTLE IV SCH ×2 (05:03→13:30)
[2019-05-08 05:08] LABS: Basophils % 0.1 % (0.0-0.8); Hemoglobin 10.2 GM/DL (12.0-16.0); Immature Granulocytes % 0.4 %; Immature Granulocytes Absolute 0.03 #; Lymphocytes # 1.1 10*3/uL (1.4-4.0); Lymphocytes % 15.4 % (21.3-54.2); Mean Corpuscular HGB Conc 30.9 GM/DL (32-36); Mean Platelet Volume 11.6 FL (9.6-12.0); Monocytes % 4.5 % (1.7-12.7); Neutrophils % 79.6 % (38.7-73.9); Platelet Count 204 T/CUMM (130-400); Red Blood Count 3.55 MC/CUMM (3.8-5.5); Red Cell Distribution Width 13.5 % (9.3-17.3); White Blood Count 7.3 T/CUMM (4-12)
[2019-05-08 05:47] LABS: Calcium 9.8 MG/DL (8.5-10.1); Osmolality,Calculated 322.4 MOS/KG (273-304)
[2019-05-08] MEDS ORDERED: FUROSEMIDE 40 MG/4 ML VIAL IV SCH (09:00)
[2019-05-08] MEDS: PANTOPRAZOLE 40 MG VIAL IV SCH (09:59)
[2019-05-08] MEDS: INSULIN GLARGINE 100 UNIT/ML SUBCUT SCH (10:04)
[2019-05-08] MEDS: ENOXAPARIN 30 MG/0.3 ML SYRINGE SUBCUT SCH (10:05)
[2019-05-08] MEDS: MAGNESIUM HYDROXIDE SUSP 30 ML UDCUP PO SCH (11:23)
[2019-05-08] MEDS: QUEtiapine 25 MG TABLET PO SCH ×2 (11:27→20:14)
[2019-05-08] MEDS: amLODIPine 10 MG TABLET PO SCH (11:27)
[2019-05-08] MEDS: carvediloL 3.125 MG TABLET PO SCH ×2 (11:27→16:50)
[2019-05-09] MEDS: ALBUTEROL/IPRATROPIUM 3 ML NEB RESP TX SCH ×4 (00:50→19:52)
[2019-05-09] MEDS: PROPOFOL 1,000 MG/100 ML BOTTLE IV SCH ×2 (03:10→16:26)
[2019-05-09 03:17] LABS: ABG Base Excess 6.5 MMOL/L (-2.5-2.5); ABG HCO3 30.7 MMOL/L (20-26); ABG Oxygen Saturation 98.1 % (95-100); ABG PCO2 42.3 MM HG (35-48); ABG PH 7.478 (7.35-7.45); ABG PO2 119.3 MM HG (80-95); Allen Test Positive; Pt O2 Delivery Device Ventilator
[2019-05-09 05:03] LABS: Calcium 9.8 MG/DL (8.5-10.1); Osmolality,Calculated 330.1 MOS/KG (273-304)
[2019-05-09 05:10] LABS: Basophils % 0.1 % (0.0-0.8); Eosinophils % 0.1 % (0.00-10.9); Hematocrit 38.2 VOL% (35.7-47.0); Hemoglobin 11.3 GM/DL (12.0-16.0); Immature Granulocytes % 0.5 %; Immature Granulocytes Absolute 0.04 #; Lymphocytes # 1.2 10*3/uL (1.4-4.0); Lymphocytes % 15.4 % (21.3-54.2); Mean Corpuscular HGB Conc 29.6 GM/DL (32-36); Mean Corpuscular Volume 95.5 FL (87-102); Mean Platelet Volume 11.7 FL (9.6-12.0); Monocytes % 5.5 % (1.7-12.7); Neutrophils % 78.4 % (38.7-73.9); Platelet Count 221 T/CUMM (130-400); Red Cell Distribution Width 13.3 % (9.3-17.3); White Blood Count 7.8 T/CUMM (4-12)
[2019-05-09] MEDS: METOCLOPRAMIDE 10 MG/2 ML VIAL IV SCH (06:00)
[2019-05-09] MEDS: INSULIN LISPRO 100 UNIT/ML SUBCUT SCH ×6 (06:00→18:27)
[2019-05-09] MEDS: methylPREDNISolone SOD SUC 40 MG/1 ML VIAL IV SCH ×3 (06:00→22:10)
[2019-05-09] MEDS: QUEtiapine 25 MG TABLET PO SCH ×2 (08:45→21:53)
[2019-05-09] MEDS: carvediloL 3.125 MG TABLET PO SCH ×2 (08:45→17:07)
[2019-05-09] MEDS: amLODIPine 10 MG TABLET PO SCH (08:45)
[2019-05-09] MEDS: PANTOPRAZOLE 40 MG VIAL IV SCH (08:46)
[2019-05-09] MEDS: INSULIN GLARGINE 100 UNIT/ML SUBCUT SCH ×2 (08:46→10:57)
[2019-05-09] MEDS: METOCLOPRAMIDE 10 MG/10 ML UDCUP PER TUBE SCH ×2 (10:58→17:07)
[2019-05-09] MEDS: LEVOFLOXACIN INJ 500 MG in PREMIX 1 EACH IV SCH (11:53)
[2019-05-09] MEDS ORDERED: SODIUM CHLORIDE 0.45% 1,000 ML IV SCH (13:00)
[2019-05-10] MEDS: INSULIN LISPRO 100 UNIT/ML SUBCUT SCH ×8 (00:32→18:04)
[2019-05-10] MEDS: METOCLOPRAMIDE 10 MG/10 ML UDCUP PER TUBE SCH ×3 (00:33→17:24)
[2019-05-10] MEDS: ALBUTEROL/IPRATROPIUM 3 ML NEB RESP TX SCH ×4 (00:38→19:59)
[2019-05-10 05:00] LABS: Basophils % 0.1 % (0.0-0.8); Eosinophils % 0.4 % (0.00-10.9); Hematocrit 32.7 VOL% (35.7-47.0); Immature Granulocytes % 0.3 %; Immature Granulocytes Absolute 0.03 #; Lymphocytes # 1.6 10*3/uL (1.4-4.0); Lymphocytes % 17.3 % (21.3-54.2); Mean Corpuscular HGB Conc 30.6 GM/DL (32-36); Mean Corpuscular Volume 93.7 FL (87-102); Mean Platelet Volume 11.2 FL (9.6-12.0); Monocytes % 4.4 % (1.7-12.7); Neutrophils % 77.5 % (38.7-73.9); Platelet Count 194 T/CUMM (130-400); Red Blood Count 3.49 MC/CUMM (3.8-5.5); Red Cell Distribution Width 13.4 % (9.3-17.3)
[2019-05-10 05:16] LABS: ABG Base Excess 1.9 MMOL/L (-2.5-2.5); ABG HCO3 26.4 MMOL/L (20-26); ABG Oxygen Saturation 98.4 % (95-100); ABG PCO2 41.1 MM HG (35-48); ABG PH 7.426 (7.35-7.45); ABG PO2 129.6 MM HG (80-95); ABG TCO2 27.7 MMOL/L (23-27); Allen Test Positive; Pt O2 Delivery Device Ventilator
[2019-05-10 05:21] LABS: Calcium 9.9 MG/DL (8.5-10.1); Osmolality,Calculated 336.6 MOS/KG (273-304)
[2019-05-10 05:26] LABS: Calcium 9.7 MG/DL (8.5-10.1); Osmolality,Calculated 334.8 MOS/KG (273-304); Prealbumin 47.8 MG/DL (20-40)
[2019-05-10] MEDS ORDERED: ceFAZolin 1,000 MG in SYRINGE 1 EACH IV ONE (06:00)
[2019-05-10] MEDS: methylPREDNISolone SOD SUC 40 MG/1 ML VIAL IV SCH ×2 (06:35→15:00)
[2019-05-10] MEDS: PROPOFOL 1,000 MG/100 ML BOTTLE IV SCH ×2 (06:45→12:09)
[2019-05-10] MEDS: PANTOPRAZOLE 40 MG VIAL IV SCH (08:13)
[2019-05-10] MEDS: carvediloL 3.125 MG TABLET PO SCH ×2 (08:13→17:24)
[2019-05-10] MEDS: QUEtiapine 25 MG TABLET PO SCH ×2 (08:13→21:41)
[2019-05-10] MEDS: amLODIPine 10 MG TABLET PO SCH (08:13)
[2019-05-10] MEDS: INSULIN GLARGINE 100 UNIT/ML SUBCUT SCH (10:53)
[2019-05-11] MEDS: ALBUTEROL/IPRATROPIUM 3 ML NEB RESP TX SCH ×4 (00:09→18:57)
[2019-05-11] MEDS: INSULIN LISPRO 100 UNIT/ML SUBCUT SCH ×8 (00:22→18:54)
[2019-05-11] MEDS: methylPREDNISolone SOD SUC 40 MG/1 ML VIAL IV SCH ×3 (00:22→15:23)
[2019-05-11] MEDS: METOCLOPRAMIDE 10 MG/10 ML UDCUP PER TUBE SCH ×3 (00:25→17:16)
[2019-05-11 04:42] LABS: ABG Base Excess -0.3 MMOL/L (-2.5-2.5); ABG HCO3 24.7 MMOL/L (20-26); ABG Oxygen Saturation 90.1 % (95-100); ABG PCO2 41.6 MM HG (35-48); ABG PH 7.391 (7.35-7.45); Allen Test Positive
[2019-05-11 04:48] LABS: Basophils % 0.2 % (0.0-0.8); Eosinophils % 0.5 % (0.00-10.9); Hemoglobin 11.5 GM/DL (12.0-16.0); Immature Granulocytes % 0.3 %; Immature Granulocytes Absolute 0.02 #; Lymphocytes % 15.7 % (21.3-54.2); Mean Corpuscular HGB Conc 30.1 GM/DL (32-36); Mean Corpuscular Volume 93.6 FL (87-102); Mean Platelet Volume 11.9 FL (9.6-12.0); Monocytes % 5.2 % (1.7-12.7); Neutrophils % 78.1 % (38.7-73.9); Platelet Count 204 T/CUMM (130-400); Red Blood Count 4.08 MC/CUMM (3.8-5.5); Red Cell Distribution Width 13.2 % (9.3-17.3); White Blood Count 6.3 T/CUMM (4-12)
[2019-05-11 04:55] LABS: Hematocrit 38.2 VOL% (35.7-47.0)
[2019-05-11 04:56] LABS: Calcium 10.1 MG/DL (8.5-10.1)
[2019-05-11] MEDS: PANTOPRAZOLE 40 MG VIAL IV SCH (10:21)
[2019-05-11] MEDS: LEVOFLOXACIN INJ 500 MG in PREMIX 1 EACH IV SCH (10:26)
[2019-05-11] MEDS: carvediloL 3.125 MG TABLET PO SCH ×2 (10:48→17:14)
[2019-05-11] MEDS: amLODIPine 10 MG TABLET PO SCH (10:48)
[2019-05-11] MEDS: INSULIN GLARGINE 100 UNIT/ML SUBCUT SCH (11:56)
[2019-05-11 21:18] LABS: ABG Base Excess -4.1 MMOL/L (-2.5-2.5); ABG Oxygen Saturation 94.8 % (95-100); ABG PCO2 35.2 MM HG (35-48); ABG PH 7.374 (7.35-7.45); ABG PO2 71.8 MM HG (80-95); ABG TCO2 18.7 MMOL/L (23-27); Allen Test Positive
[2019-05-11] MEDS ORDERED: LORazepam 2 MG/1 ML VIAL IV ONE (23:41)
[2019-05-12] MEDS: ALBUTEROL/IPRATROPIUM 3 ML NEB RESP TX SCH ×4 (00:10→19:41)
[2019-05-12] MEDS: INSULIN LISPRO 100 UNIT/ML SUBCUT SCH ×8 (00:40→18:11)
[2019-05-12] MEDS: methylPREDNISolone SOD SUC 40 MG/1 ML VIAL IV SCH ×4 (00:41→22:51)
[2019-05-12] MEDS: METOCLOPRAMIDE 10 MG/10 ML UDCUP PER TUBE SCH ×3 (02:02→17:23)
[2019-05-12 04:59] LABS: Basophils % 0.1 % (0.0-0.8); Eosinophils % 0.1 % (0.00-10.9); Hematocrit 34.2 VOL% (35.7-47.0); Hemoglobin 10.3 GM/DL (12.0-16.0); Immature Granulocytes % 0.3 %; Immature Granulocytes Absolute 0.02 #; Lymphocytes % 14.4 % (21.3-54.2); Mean Corpuscular HGB Conc 30.1 GM/DL (32-36); Mean Corpuscular Volume 93.4 FL (87-102); Mean Platelet Volume 12.1 FL (9.6-12.0); Monocytes % 6.2 % (1.7-12.7); Neutrophils % 78.9 % (38.7-73.9); Platelet Count 200 T/CUMM (130-400); Red Blood Count 3.66 MC/CUMM (3.8-5.5); Red Cell Distribution Width 13.3 % (9.3-17.3)
[2019-05-12 05:25] LABS: Calcium 10.2 MG/DL (8.5-10.1)
[2019-05-12 05:59] LABS: Platelet Estimate Normal; Polychromasia Slight
[2019-05-12] MEDS: INSULIN GLARGINE 100 UNIT/ML SUBCUT SCH (09:10)
[2019-05-12] MEDS: ENOXAPARIN 30 MG/0.3 ML SYRINGE SUBCUT SCH (09:10)
[2019-05-12] MEDS: carvediloL 3.125 MG TABLET PO SCH ×2 (09:12→17:22)
[2019-05-12] MEDS: amLODIPine 10 MG TABLET PO SCH (09:12)
[2019-05-12] MEDS: PANTOPRAZOLE 40 MG VIAL IV SCH (09:15)
[2019-05-12] MEDS: DEXTROSE 5% NACL 0.45% 1,000 ML IV SCH ×2 (12:19→20:19)
[2019-05-13] MEDS: INSULIN LISPRO 100 UNIT/ML SUBCUT SCH ×8 (00:53→18:49)
[2019-05-13] MEDS: ALBUTEROL/IPRATROPIUM 3 ML NEB RESP TX SCH ×4 (01:47→20:31)
[2019-05-13] MEDS: METOCLOPRAMIDE 10 MG/10 ML UDCUP PER TUBE SCH ×3 (02:31→17:38)
[2019-05-13] MEDS: DEXTROSE 5% NACL 0.45% 1,000 ML IV SCH ×3 (04:13→23:20)
[2019-05-13 06:09] LABS: Hematocrit 30.1 VOL% (35.7-47.0); Hemoglobin 9.1 GM/DL (12.0-16.0); Immature Granulocytes % 0.7 %; Immature Granulocytes Absolute 0.03 #; Lymphocytes # 0.7 10*3/uL (1.4-4.0); Lymphocytes % 14.6 % (21.3-54.2); Mean Corpuscular HGB Conc 30.2 GM/DL (32-36); Mean Corpuscular Volume 94.1 FL (87-102); Mean Platelet Volume 12.2 FL (9.6-12.0); Monocytes % 4.6 % (1.7-12.7); Neutrophils % 80.1 % (38.7-73.9); Platelet Count 159 T/CUMM (130-400); Red Cell Distribution Width 13.2 % (9.3-17.3); White Blood Count 4.5 T/CUMM (4-12)
[2019-05-13] MEDS: methylPREDNISolone SOD SUC 40 MG/1 ML VIAL IV SCH ×3 (06:37→23:19)
[2019-05-13] MEDS: carvediloL 3.125 MG TABLET PO SCH ×2 (09:07→17:38)
[2019-05-13] MEDS: amLODIPine 10 MG TABLET PO SCH (09:07)
[2019-05-13] MEDS: INSULIN GLARGINE 100 UNIT/ML SUBCUT SCH (09:08)
[2019-05-13] MEDS: ENOXAPARIN 30 MG/0.3 ML SYRINGE SUBCUT SCH (09:08)
[2019-05-13] MEDS: PANTOPRAZOLE 40 MG VIAL IV SCH (09:12)
[2019-05-13] MEDS: LEVOFLOXACIN INJ 500 MG in PREMIX 1 EACH IV SCH (13:04)
[2019-05-14] MEDS: ALBUTEROL/IPRATROPIUM 3 ML NEB RESP TX SCH ×4 (00:16→19:15)
[2019-05-14] MEDS: INSULIN LISPRO 100 UNIT/ML SUBCUT SCH ×8 (01:12→19:45)
[2019-05-14] MEDS: METOCLOPRAMIDE 10 MG/10 ML UDCUP PER TUBE SCH ×3 (01:13→18:25)
[2019-05-14 05:42] LABS: Hematocrit 28.3 VOL% (35.7-47.0); Hemoglobin 8.8 GM/DL (12.0-16.0); Immature Granulocytes % 0.5 %; Immature Granulocytes Absolute 0.02 #; Lymphocytes # 0.6 10*3/uL (1.4-4.0); Lymphocytes % 13.8 % (21.3-54.2); Mean Corpuscular HGB Conc 31.1 GM/DL (32-36); Mean Corpuscular Volume 91.9 FL (87-102); Monocytes % 4.1 % (1.7-12.7); Neutrophils % 81.6 % (38.7-73.9); Platelet Count 139 T/CUMM (130-400); Red Blood Count 3.08 MC/CUMM (3.8-5.5); Red Cell Distribution Width 13.2 % (9.3-17.3); White Blood Count 4.4 T/CUMM (4-12)
[2019-05-14 06:00] LABS: Calcium 9.6 MG/DL (8.5-10.1); Osmolality,Calculated 321.7 MOS/KG (273-304)
[2019-05-14] MEDS: DEXTROSE 5% NACL 0.45% 1,000 ML IV SCH ×3 (06:10→20:00)
[2019-05-14] MEDS: ENOXAPARIN 30 MG/0.3 ML SYRINGE SUBCUT SCH (09:17)
[2019-05-14] MEDS: carvediloL 3.125 MG TABLET PO SCH ×2 (09:17→18:25)
[2019-05-14] MEDS: amLODIPine 10 MG TABLET PO SCH (09:17)
[2019-05-14] MEDS: PANTOPRAZOLE 40 MG VIAL IV SCH (09:19)
[2019-05-14] MEDS: methylPREDNISolone SOD SUC 40 MG/1 ML VIAL IV SCH ×3 (09:43→15:30)
[2019-05-14] MEDS: INSULIN GLARGINE 100 UNIT/ML SUBCUT SCH (09:50)
[2019-05-14] MEDS: ACETAMINOPHEN 325 MG TABLET PO PRN ×2 (19:50→23:48)
[2019-05-15] MEDS: ALBUTEROL/IPRATROPIUM 3 ML NEB RESP TX SCH ×4 (00:28→19:15)
[2019-05-15] MEDS: METOCLOPRAMIDE 10 MG/10 ML UDCUP PER TUBE SCH ×2 (00:56→08:49)
[2019-05-15] MEDS: INSULIN LISPRO 100 UNIT/ML SUBCUT SCH ×8 (00:56→18:44)
[2019-05-15] MEDS: methylPREDNISolone SOD SUC 40 MG/1 ML VIAL IV SCH (04:36)
[2019-05-15 06:09] LABS: Hematocrit 28.1 VOL% (35.7-47.0); Hemoglobin 8.8 GM/DL (12.0-16.0); Immature Granulocytes % 0.2 %; Immature Granulocytes Absolute 0.01 #; Lymphocytes # 1.6 10*3/uL (1.4-4.0); Lymphocytes % 32.5 % (21.3-54.2); Mean Corpuscular HGB Conc 31.3 GM/DL (32-36); Mean Corpuscular Volume 90.6 FL (87-102); Mean Platelet Volume 12.4 FL (9.6-12.0); Monocytes % 5.8 % (1.7-12.7); Neutrophils % 61.5 % (38.7-73.9); Platelet Count 143 T/CUMM (130-400); Red Cell Distribution Width 13.3 % (9.3-17.3); White Blood Count 4.8 T/CUMM (4-12)
[2019-05-15 06:30] LABS: Calcium 9.5 MG/DL (8.5-10.1); Osmolality,Calculated 311.3 MOS/KG (273-304)
[2019-05-15] MEDS: amLODIPine 10 MG TABLET PO SCH (08:49)
[2019-05-15] MEDS: carvediloL 3.125 MG TABLET PO SCH ×2 (08:49→18:44)
[2019-05-15] MEDS: ENOXAPARIN 30 MG/0.3 ML SYRINGE SUBCUT SCH (08:50)
[2019-05-15] MEDS: INSULIN GLARGINE 100 UNIT/ML SUBCUT SCH ×2 (08:50→21:40)
[2019-05-15] MEDS: PANTOPRAZOLE 40 MG VIAL IV SCH (08:55)
[2019-05-15] MEDS ORDERED: METHOCARBAMOL 750 MG TABLET PO PRN (10:56)
[2019-05-15] MEDS: LEVOTHYROXINE 75 MCG TABLET PO SCH (12:59)
[2019-05-15] MEDS: FLUoxetine 20 MG CAPSULE PO SCH (12:59)
[2019-05-16] MEDS: INSULIN LISPRO 100 UNIT/ML SUBCUT SCH ×8 (00:43→17:29)
[2019-05-16] MEDS: ALBUTEROL/IPRATROPIUM 3 ML NEB RESP TX SCH ×4 (01:10→20:05)
[2019-05-16] MEDS: LEVOTHYROXINE 75 MCG TABLET PO SCH (06:29)
[2019-05-16] MEDS ORDERED: predniSONE 20 MG TABLET PO SCH (09:00)
[2019-05-16] MEDS: ENOXAPARIN 30 MG/0.3 ML SYRINGE SUBCUT SCH (10:05)
[2019-05-16] MEDS: FLUoxetine 20 MG CAPSULE PO SCH (10:05)
[2019-05-16] MEDS: ACETAMINOPHEN 325 MG TABLET PO PRN (10:06)
[2019-05-16] MEDS: PANTOPRAZOLE 40 MG TABLET PO SCH (10:06)
[2019-05-16] MEDS: amLODIPine 10 MG TABLET PO SCH (10:06)
[2019-05-16] MEDS: INSULIN GLARGINE 100 UNIT/ML SUBCUT SCH ×2 (10:07→22:22)
[2019-05-16] MEDS: carvediloL 3.125 MG TABLET PO SCH ×2 (10:07→17:31)
[2019-05-16] MEDS: predniSONE 20 MG TABLET PO SCH (10:07)
[2019-05-16] MEDS ORDERED: ZALEPLON 5 MG CAPSULE PO PRN (21:01)
[2019-05-16] MEDS: ZALEPLON 5 MG CAPSULE PO PRN (22:26)
[2019-05-17] MEDS: INSULIN LISPRO 100 UNIT/ML SUBCUT SCH ×8 (00:25→18:23)
[2019-05-17] MEDS: ALBUTEROL/IPRATROPIUM 3 ML NEB RESP TX SCH ×4 (01:02→19:49)
[2019-05-17 06:02] LABS: Calcium 8.9 MG/DL (8.5-10.1); Osmolality,Calculated 293.1 MOS/KG (273-304)
[2019-05-17] MEDS: ENOXAPARIN 30 MG/0.3 ML SYRINGE SUBCUT SCH (11:02)
[2019-05-17] MEDS: FLUoxetine 20 MG CAPSULE PO SCH (11:02)
[2019-05-17] MEDS: LEVOTHYROXINE 75 MCG TABLET PO SCH (11:03)
[2019-05-17] MEDS: carvediloL 3.125 MG TABLET PO SCH ×2 (11:03→17:53)
[2019-05-17] MEDS: amLODIPine 10 MG TABLET PO SCH (11:03)
[2019-05-17] MEDS: INSULIN GLARGINE 100 UNIT/ML SUBCUT SCH ×2 (11:04→20:56)
[2019-05-17] MEDS: predniSONE 20 MG TABLET PO SCH (11:04)
[2019-05-17] MEDS: PANTOPRAZOLE 40 MG TABLET PO SCH (11:04)
[2019-05-17] MEDS: ZALEPLON 5 MG CAPSULE PO PRN (20:57)
[2019-05-18] MEDS: ALBUTEROL/IPRATROPIUM 3 ML NEB RESP TX SCH ×4 (00:45→20:49)
[2019-05-18] MEDS: INSULIN LISPRO 100 UNIT/ML SUBCUT SCH ×8 (00:49→17:46)
[2019-05-18] MEDS: amLODIPine 10 MG TABLET PO SCH (08:33)
[2019-05-18] MEDS: ENOXAPARIN 30 MG/0.3 ML SYRINGE SUBCUT SCH (08:33)
[2019-05-18] MEDS: predniSONE 20 MG TABLET PO SCH (08:33)
[2019-05-18] MEDS: LEVOTHYROXINE 75 MCG TABLET PO SCH (08:33)
[2019-05-18] MEDS: INSULIN GLARGINE 100 UNIT/ML SUBCUT SCH ×3 (08:33→20:37)
[2019-05-18] MEDS: PANTOPRAZOLE 40 MG TABLET PO SCH (08:33)
[2019-05-18] MEDS: FLUoxetine 20 MG CAPSULE PO SCH (08:33)
[2019-05-18] MEDS: carvediloL 3.125 MG TABLET PO SCH ×2 (08:34→17:45)
[2019-05-18] MEDS: ACETAMINOPHEN 325 MG TABLET PO PRN (10:36)
[2019-05-19] MEDS: ALBUTEROL/IPRATROPIUM 3 ML NEB RESP TX SCH ×3 (01:00→07:21)
[2019-05-19] MEDS: INSULIN LISPRO 100 UNIT/ML SUBCUT SCH ×4 (01:35→06:29)
[2019-05-19] MEDS: LEVOTHYROXINE 75 MCG TABLET PO SCH (07:34)
[2019-05-19 08:29] VITALS: BP 133/67
[2019-05-19] MEDS: FLUoxetine 20 MG CAPSULE PO SCH (08:45)
[2019-05-19] MEDS: carvediloL 3.125 MG TABLET PO SCH (08:45)
[2019-05-19] MEDS: PANTOPRAZOLE 40 MG TABLET PO SCH (08:45)
[2019-05-19] MEDS: predniSONE 20 MG TABLET PO SCH (08:45)
[2019-05-19] MEDS: ENOXAPARIN 30 MG/0.3 ML SYRINGE SUBCUT SCH (08:45)
[2019-05-19] MEDS: amLODIPine 10 MG TABLET PO SCH (08:46)
[2019-05-19] MEDS: INSULIN GLARGINE 100 UNIT/ML SUBCUT SCH (10:07)
== END 2019-05-19 10:03 | DRG 130 ==
LOC: N.CC 07:06 → SUATTDRO 07:06 → N.3E 05-11 14:52
PROVIDERS: ADMIT Internal Medicine; ATTEND Internal Medicine

== ENCOUNTER 2021-03-16 17:27 | Inpatient (IN) ==
[2021-03-16] MEDS ORDERED: ONDANSETRON 4 MG/2 ML VIAL IV STA (18:44)
[2021-03-16] MEDS ORDERED: ASPIRIN 325 MG TABLET PO STA (18:44)
[2021-03-16] MEDS ORDERED: methylPREDNISolone SOD SUC 125 MG/2 ML VIAL IV STA (18:44)
[2021-03-16] MEDS ORDERED: FUROSEMIDE 100 MG/10 ML VIAL IV STA (18:44)
[2021-03-16] MEDS ORDERED: NITROGLYCERIN 2% OINT 1 INCH/GM PACK TOP STA (18:48)
[2021-03-16 18:57] LABS: Basophils % 0.6 % (0.0-0.8); Eosinophils # 0.1 10*3/uL (0.0-0.87); Eosinophils % 1.2 % (0.00-10.9); Hematocrit 33.7 VOL% (35.7-47.0); Immature Granulocytes % 0.4 %; Immature Granulocytes Absolute 0.02 #; Lymphocytes # 1.3 10*3/uL (1.4-4.0); Lymphocytes % 24.6 % (21.3-54.2); Mean Corpuscular HGB Conc 29.7 GM/DL (32-36); Mean Corpuscular Volume 100.9 FL (87-102); Mean Platelet Volume 11.2 FL (9.6-12.0); Monocytes % 4.9 % (1.7-12.7); Neutrophils % 68.3 % (38.7-73.9); Platelet Count 142 T/CUMM (130-400); Red Blood Count 3.34 MC/CUMM (3.8-5.5); Red Cell Distribution Width 15.9 % (9.3-17.3); White Blood Count 5.1 T/CUMM (4-12)
[2021-03-16] MEDS ORDERED: ALBUTEROL NEB SOLN 5 MG/ML 20 ML/BOTTLE CONT NEB SCH (19:00)
[2021-03-16 19:05] LABS: PT Patient Result 10.9 SECS (10.5-12.0)
[2021-03-16 19:18] LABS: Albumin 3.4 G/DL (3.4-5.0); Bilirubin,Total 0.4 MG/DL (0.20-1.00); Calcium 8.9 MG/DL (8.5-10.1); Potassium 4.9 MMOL/L (3.5-5.1); Total Protein 8.1 G/DL (6.4-8.2)
[2021-03-16 20:06] LABS: Bacteria,Urine Occasional /HPF (Few); Bilirubin,Urine Negative (Negative); Blood, Urine Small mg/dL (Negative); Glucose,Urine (UA) 50 mg/dL (Negative); Ketones,Urine Negative (Negative); Mucus,Urine Occasional /LPF (Occasional); Nitrite,Urine Negative (Negative); Protein,Urine 100 MG/DL; RBC,Urine 1 /HPF (0-4); Squamous Epithelial Cell,Urine Occasional /HPF (0-10); Urine Appearance CLEAR (Clear); Urine Color Yellow (Yellow); Urine Specific Gravity 1.013 (1.001-1.035); Urine Urobilinogen < 2.0 EU/DL (0.2-1.0)
[2021-03-16] MEDS ORDERED: ONDANSETRON 4 MG/2 ML VIAL IV PRN (20:31)
[2021-03-16] MEDS ORDERED: MAGNESIUM SULF RIDER 4 GM/100 ML PREMIX IV PRN (20:31)
[2021-03-16] MEDS ORDERED: ACETAMINOPHEN 325 MG TABLET PO PRN (20:31)
[2021-03-16] MEDS ORDERED: GLUCAGON 1 MG VIAL IM PRN ×2 (20:31)
[2021-03-16] MEDS ORDERED: DEXTROSE 50% 25 GM/50 ML VIAL IV PRN ×2 (20:31)
[2021-03-16] MEDS ORDERED: MAGNESIUM SULF RIDER 2 GM/50 ML PREMIX IV PRN (20:31)
[2021-03-16] MEDS ORDERED: METHOCARBAMOL 500 MG TABLET PO PRN (20:35)
[2021-03-16] MEDS: ENOXAPARIN 30 MG/0.3 ML SYRINGE SUBCUT SCH (21:42)
[2021-03-16] MEDS: INSULIN REGULAR 100 UNIT/ML SUBCUT SCH (22:04)
[2021-03-17 01:39] LABS: Albumin 3.6 G/DL (3.4-5.0); Bilirubin,Total 0.6 MG/DL (0.20-1.00); Calcium 9.3 MG/DL (8.5-10.1); Osmolality,Calculated 297.7 MOS/KG (273-304); Potassium 5.1 MMOL/L (3.5-5.1); Total Protein 8.5 G/DL (6.4-8.2)
[2021-03-17 01:42] LABS: Basophils % 0.4 % (0.0-0.8); Eosinophils % 0.1 % (0.00-10.9); Hematocrit 35.2 VOL% (35.7-47.0); Hemoglobin 10.4 GM/DL (12.0-16.0); Immature Granulocytes % 0.6 %; Immature Granulocytes Absolute 0.04 #; Lymphocytes # 0.5 10*3/uL (1.4-4.0); Lymphocytes % 7.5 % (21.3-54.2); Mean Corpuscular HGB Conc 29.5 GM/DL (32-36); Mean Corpuscular Volume 101.4 FL (87-102); Mean Platelet Volume 11.5 FL (9.6-12.0); Monocytes % 0.7 % (1.7-12.7); Neutrophils % 90.7 % (38.7-73.9); Platelet Count 153 T/CUMM (130-400); Red Blood Count 3.47 MC/CUMM (3.8-5.5); Red Cell Distribution Width 15.8 % (9.3-17.3); White Blood Count 6.7 T/CUMM (4-12)
[2021-03-17 02:27] LABS: Lymphocytes 5 % (20-55); Platelet Estimate Normal; Segmented Neutrophils 94 % (50-85); Total Cells Counted 100
[2021-03-17] MEDS: LEVOTHYROXINE 100 MCG TABLET PO SCH (06:04)
[2021-03-17] MEDS ORDERED: carvediloL 3.125 MG TABLET PO SCH (08:00)
[2021-03-17] MEDS: FUROSEMIDE 40 MG/4 ML VIAL IV SCH ×2 (08:42→17:49)
[2021-03-17] MEDS: INSULIN REGULAR 100 UNIT/ML SUBCUT SCH ×4 (09:16→21:06)
[2021-03-17] MEDS: FERROUS SULFATE 325 MG TABLET PO SCH ×2 (15:49→16:42)
[2021-03-17] MEDS: ASPIRIN EC 325 MG TABLET PO SCH (15:50)
[2021-03-17] MEDS: PANTOPRAZOLE 40 MG TABLET PO SCH (15:51)
[2021-03-17] MEDS: carvediloL 12.5 MG TABLET PO SCH (16:43)
[2021-03-17] MEDS ORDERED: carvediloL 6.25 MG TABLET PO SCH (17:00)
[2021-03-17 18:04] LABS: Barbiturates Screen,Urine Negative (Negative); Benzodiazepines Screen,Urine Negative (Negative); Cannabinoid Screen,Urine Negative (Negative); Opiate Screen,Urine Negative (Negative); Phencyclidine Screen,Urine Negative (Negative)
[2021-03-17] MEDS: ENOXAPARIN 30 MG/0.3 ML SYRINGE SUBCUT SCH (21:07)
[2021-03-18] MEDS: LEVOTHYROXINE 100 MCG TABLET PO SCH (06:01)
[2021-03-18 08:00] LABS: Basophils % 0.1 % (0.0-0.8); Eosinophils % 0.3 % (0.00-10.9); Hematocrit 30.9 VOL% (35.7-47.0); Hemoglobin 9.2 GM/DL (12.0-16.0); Immature Granulocytes % 0.4 %; Immature Granulocytes Absolute 0.03 #; Lymphocytes # 1.3 10*3/uL (1.4-4.0); Lymphocytes % 19.4 % (21.3-54.2); Mean Corpuscular HGB Conc 29.8 GM/DL (32-36); Mean Corpuscular Volume 101.3 FL (87-102); Mean Platelet Volume 10.9 FL (9.6-12.0); Monocytes % 4.3 % (1.7-12.7); Neutrophils % 75.5 % (38.7-73.9); Platelet Count 125 T/CUMM (130-400); Red Blood Count 3.05 MC/CUMM (3.8-5.5); Red Cell Distribution Width 15.7 % (9.3-17.3); White Blood Count 6.8 T/CUMM (4-12)
[2021-03-18 08:19] LABS: Calcium 8.4 MG/DL (8.5-10.1); Osmolality,Calculated 297.3 MOS/KG (273-304); Potassium 4.9 MMOL/L (3.5-5.1)
[2021-03-18] MEDS: ASPIRIN EC 325 MG TABLET PO SCH (09:05)
[2021-03-18] MEDS: carvediloL 12.5 MG TABLET PO SCH (09:05)
[2021-03-18] MEDS: FERROUS SULFATE 325 MG TABLET PO SCH (09:05)
[2021-03-18] MEDS: FUROSEMIDE 40 MG/4 ML VIAL IV SCH ×2 (09:05→09:07)
[2021-03-18] MEDS: PANTOPRAZOLE 40 MG TABLET PO SCH (09:05)
[2021-03-18] MEDS: INSULIN REGULAR 100 UNIT/ML SUBCUT SCH ×2 (09:06→13:35)
[2021-03-18 12:17] VITALS: BP 142/66
== END 2021-03-18 15:06 | disposition home or self-care (01) | DRG 194 ==
LOC: N.ED 17:27 → N.EDINP 20:31 → N.TELES 23:48
PROVIDERS: ADMIT Internal Medicine; ATTEND Internal Medicine

== ENCOUNTER 2022-05-17 18:26 | Observation (INO) ==
[2022-05-17] MEDS ORDERED: ONDANSETRON 4 MG/2 ML VIAL IV STA (19:16)
[2022-05-17] MEDS ORDERED: NITROGLYCERIN 2% OINT 1 INCH/GM PACK TOP STA (19:16)
[2022-05-17] MEDS ORDERED: ASPIRIN 325 MG TABLET PO STA (19:16)
[2022-05-17 19:23] LABS: Basophils % 0.7 % (0.0-0.8); Eosinophils # 0.1 10*3/uL (0.0-0.87); Eosinophils % 1.4 % (0.00-10.9); Hematocrit 35.9 VOL% (35.7-47.0); Hemoglobin 10.6 GM/DL (12.0-16.0); Immature Granulocytes % 0.2 %; Immature Granulocytes Absolute 0.01 #; Lymphocytes % 23.2 % (21.3-54.2); Mean Corpuscular HGB Conc 29.5 GM/DL (32-36); Mean Corpuscular Volume 106.2 FL (87-102); Mean Platelet Volume 10.9 FL (9.6-12.0); Monocytes # 0.2 10*3/uL (0.11-0.8); Monocytes % 4.9 % (1.7-12.7); Neutrophils % 69.6 % (38.7-73.9); Platelet Count 123 T/CUMM (130-400); Red Blood Count 3.38 MC/CUMM (3.8-5.5); Red Cell Distribution Width 15.4 % (9.3-17.3); White Blood Count 4.3 T/CUMM (4-12)
[2022-05-17 19:38] LABS: PT Patient Result 10.9 SECS (10.1-12.1); Partial Thromboplastin Time 24.2 SECS (23.7-32.9)
[2022-05-17 19:40] LABS: Albumin 3.7 G/DL (3.4-5.0); Bilirubin,Total 0.7 MG/DL (0.20-1.00); Calcium 8.8 MG/DL (8.5-10.1); Osmolality,Calculated 300.8 MOS/KG (273-304); Potassium 5.1 MMOL/L (3.5-5.1); Total Protein 7.6 G/DL (6.4-8.2)
[2022-05-17 20:37] LABS: Urine Appearance Clear (Clear); Urine Color Yellow (Yellow)
[2022-05-17 20:38] LABS: Bilirubin,Urine Negative (Negative); Blood, Urine Moderate mg/dL (Negative); Glucose,Urine (UA) 100 mg/dL (Negative); Ketones,Urine Negative (Negative); Nitrite,Urine Negative (Negative); Protein,Urine Negative (Negative); RBC,Urine 4 /HPF (0-4); Squamous Epithelial Cell,Urine Few /HPF (0-10); Urine Specific Gravity 1.025 (1.001-1.035); Urine Urobilinogen 0.2 eU/dL (<2.0); Urine pH 6.5 (4.5-8.0)
[2022-05-17 20:39] LABS: Bacteria,Urine Rare /HPF (Few)
[2022-05-17 20:43] LABS: Barbiturates Screen,Urine Negative (Negative); Benzodiazepines Screen,Urine Negative (Negative); Cannabinoid Screen,Urine Negative (Negative); Opiate Screen,Urine Negative (Negative); Phencyclidine Screen,Urine Negative (Negative)
[2022-05-17] MEDS ORDERED: ZALEPLON 5 MG CAPSULE PO PRN (20:45)
[2022-05-17] MEDS ORDERED: ACETAMINOPHEN 325 MG TABLET PO PRN (20:45)
[2022-05-17] MEDS ORDERED: guaiFENesin/DM ER 600-30 MG TABLET PO PRN (20:45)
[2022-05-17] MEDS ORDERED: diphenhydrAMINE CAP 25 MG CAPSULE PO PRN (20:45)
[2022-05-17] MEDS ORDERED: NICOTINE 21 MG/24 HR PATCH TRANSDERM PRN (20:45)
[2022-05-17] MEDS ORDERED: hydrALAZINE 20 MG/1 ML VIAL IV PRN (20:45)
[2022-05-17] MEDS ORDERED: ALBUTEROL/IPRATROPIUM 3 ML NEB RESP TX PRN (20:45)
[2022-05-17] MEDS ORDERED: ONDANSETRON 4 MG/2 ML VIAL IV PRN (20:45)
[2022-05-17] MEDS: HEPARIN 5,000 UNIT/1 ML VIAL SUBCUT SCH (21:58)
[2022-05-18 05:09] LABS: Calcium 8.5 MG/DL (8.5-10.1); Osmolality,Calculated 298.8 MOS/KG (273-304)
[2022-05-18 05:42] LABS: Basophils % 0.5 % (0.0-0.8); Eosinophils # 0.1 10*3/uL (0.0-0.87); Eosinophils % 1.6 % (0.00-10.9); Hemoglobin 9.7 GM/DL (12.0-16.0); Immature Granulocytes % 0.5 %; Immature Granulocytes Absolute 0.02 #; Lymphocytes % 25.3 % (21.3-54.2); Mean Corpuscular HGB Conc 29.2 GM/DL (32-36); Mean Corpuscular Volume 105.4 FL (87-102); Mean Platelet Volume 10.8 FL (9.6-12.0); Monocytes # 0.3 10*3/uL (0.11-0.8); Monocytes % 8.4 % (1.7-12.7); Neutrophils % 63.7 % (38.7-73.9); Platelet Count 113 T/CUMM (130-400); Red Blood Count 3.15 MC/CUMM (3.8-5.5); Red Cell Distribution Width 15.7 % (9.3-17.3); White Blood Count 3.8 T/CUMM (4-12)
[2022-05-18 05:43] LABS: Hematocrit 33.2 VOL% (35.7-47.0)
[2022-05-18] MEDS ORDERED: INSULIN GLARGINE 100 UNIT/ML SUBCUT PRN (06:42)
[2022-05-18] MEDS ORDERED: LORazepam 1 MG TABLET PO PRN (07:04)
[2022-05-18] MEDS ORDERED: LEVOTHYROXINE 112 MCG TABLET PO SCH (07:30)
[2022-05-18] MEDS ORDERED: carvediloL 3.125 MG TABLET PO SCH (08:00)
[2022-05-18] MEDS ORDERED: FUROSEMIDE 40 MG TABLET PO SCH (09:00)
[2022-05-18] MEDS ORDERED: ASPIRIN EC 325 MG TABLET PO SCH (09:00)
[2022-05-18] MEDS ORDERED: FERROUS SULFATE 325 MG TABLET PO SCH (09:00)
[2022-05-18] MEDS ORDERED: PANTOPRAZOLE 40 MG TABLET PO SCH (09:00)
[2022-05-18] MEDS: HEPARIN 5,000 UNIT/1 ML VIAL SUBCUT SCH (09:28)
[2022-05-18] MEDS ORDERED: METHOCARBAMOL 750 MG TABLET PO PRN (09:45)
[2022-05-18] MEDS ORDERED: DAPAGLIFLOZIN 10 MG TABLET PO SCH (13:30)
[2022-05-18] MEDS ORDERED: ISOSORBIDE MONONITRATE 30 MG TABLET PO SCH (13:30)
[2022-05-18 17:27] VITALS: BP 131/45
[2022-05-18] MEDS ORDERED: hydrALAZINE 25 MG TABLET PO SCH (21:00)
== END 2022-05-18 17:45 | disposition home or self-care (01) ==
LOC: N.EDINP 18:26 → N.ED 18:26 → N.EDINP 21:08 → N.TELEN 21:20
PROVIDERS: ADMIT Internal Medicine Geriatric Medicine; ATTEND Internal Medicine Geriatric Medicine